=== PATIENT | male | born 2005 | race Hispanic/Latino ===

== ENCOUNTER → 2025-02-23 | Day surgery (SDC) | payer OTHER ==
[~2025-02-23] MED LIST: BUPIVACAINE LIPOSOME/PF 266 MG/20 ML IJ ONE; DEXAMETHASONE SOD PHOS INJ 4 MG/ML SDV ONE; EPHEDRINE SULFATE INJ 50 MG/ML VIAL ONE; FENTANYL CITRATE/PF 100MCG/2 ML INJ ONE; ONDANSETRON HCL INJ 2MG/ML 2ML 2 MG/ML VIAL ONE; PROPOFOL IV EMULSION 10 MG/ML 20 ML VIAL ONE; SEVOFLURANE INHAL SOLN 250 ML PEN BTL ONE; SODIUM CHLORIDE 0.9% 100 ML ONE
[2025-02-23] MEDS: LACTATED RINGER'S 1,000 ML ONE (10:10)
[2025-02-23] MEDS: CEFAZOLIN SODIUM 2 GM ONE (10:11)
[2025-02-23 16:00] VITALS: BP 137/80; PULSE 87; RESP 16; O2SAT 99
== END | disposition home or self-care (01) ==
LOC: OR 09:39
PROVIDERS: ATTEND Orthopaedic Surgery Sports Medicine
DX: S83.511A Sprain of anterior cruciate ligament of right knee, initial encounter (principal); S83.271A Complex tear of lateral meniscus, current injury, right knee, initial encounter; S83.221A Peripheral tear of medial meniscus, current injury, right knee, initial encounter; M23.671 Other spontaneous disruption of capsular ligament of right knee; X58.XXXA Exposure to other specified factors, initial encounter; M23.41 Loose body in knee, right knee
CPT/HCPCS: 27427; 29883; 29888; 76000; C1713; J0666; J1100; J2405; J2704; J3010; J7050; J7121